=== PATIENT | female | born 2000 | race Caucasian/White ===

== ENCOUNTER 2024-01-05 15:27 | Emergency (ER) | payer OTHER ==
[~2024-01-05] VITALS: Ht 162.6 cm; Wt 89.5 kg
[2024-01-05 15:38] VITALS: TEMP 98.3
[2024-01-05] MEDS ORDERED: Ketorolac 15 MG/ML VIAL IV ONE (16:00)
[2024-01-05] MEDS ORDERED: Ondansetron 4 MG/2 ML VIAL IV ONE (16:00)
[2024-01-05] MEDS ORDERED: NS 1,000 ML IV ONE (16:00)
[2024-01-05 16:02] LABS: URINE APPEARANCE CLEAR (CLEAR/HAZY); URINE BLOOD TRACE (NEGATIVE); URINE COLOR YELLOW (YELLOW); URINE GLUCOSE NEGATIVE (NEGATIVE); URINE KETONE TRACE (NEGATIVE); URINE NITRATE NEGATIVE (NEGATIVE); URINE PROTEIN(semi-quant) NEGATIVE (NEGATIVE)
[2024-01-05 16:25] LABS: BASO % 0.5 % (0.0-2.0); EOS # 0.1 K/mm3 (0.0-0.7); EOS % 1.6 % (0.0-4.0); GRAN # 3.7 K/mm3 (1.4-6.5); GRAN % 64.8 % (42.2-75.2); HEMATOCRIT 39.1 % (37.0-47.0); HEMOGLOBIN 13.1 g/dl (12.5-16.0); LYMPH # 1.4 K/mm3 (1.2-3.4); MEAN CELL VOLUME 92 fl (80.0-100.0); MEAN CORPUSCULAR HEMOGLOBIN 31 pg (27-31); MEAN CORPUSCULAR HGB CONC 34 g/dl (33.0-37.0); MEAN PLATELET VOLUME 10.7 fl (7.4-10.4); MONO # 0.5 K/mm3 (0.1-0.6); MONO % 8.7 % (1.7-9.3); PLATELET COUNT 264 K/mm3 (130-400); RED BLOOD COUNT 4.25 M/mm3 (4.10-5.30); REDCELL DISTRIBUTION WIDTH-CV 12.4 % (11.5-14.5)
[2024-01-05 16:45] LABS: ALBUMIN 4.1 g/dL (3.5-5.0); BILIRUBIN,TOTAL 0.4 mg/dL (0.2-1.2); CALCIUM 9.5 mg/dL (8.4-10.2); CREATININE, serum 0.7 mg/dL (0.57-1.11)
[2024-01-05 17:27] LABS: COLLECTION METHOD CLEAN CATCH
[2024-01-05 19:04] VITALS: BP 108/76; PULSE 86
== END 2024-01-05 19:10 | disposition home or self-care (01) ==
LOC: COL.ER 15:27
PROVIDERS: Physician Assistant
DX: R10.11 Right upper quadrant pain (principal)
CPT/HCPCS: J1885; J2405; J7030